=== PATIENT | female | born 1960 | race Caucasian/White ===

== ENCOUNTER 2020-04-23 16:19 | Emergency (ER) | payer OTHER, SELFPAY ==
[2020-04-23 16:28] VITALS: BP 199/144; PULSE 116; RESP 18; TEMP 37; O2SAT 99
--- NOTE | 2020-04-23 16:45 | ED.GENADULT ---
HPI - General Adult General Chief complaint: Unspecified Stated complaint: Nose bleed Time Seen by Provider: 04/23/20 16:24 Source: patient Mode of arrival: ambulatory Limitations: no limitations History of Present Illness HPI narrative: This patient is a 60 year old female who presents for evaluation of nose bleed. She states this morning she was picking at her nose and it started bleeding from the left nostril. It has intermittent bled today. She has been using AFrin today more than recommended. She denies postnasal drainage. She denies lightheadedness or dizziness currently. Related Data Allergies Allergy/AdvReac Type Severity Reaction Status Date / Time No Known Allergies Allergy Verified 04/23/20 19:32 Review of Systems Review of Systems: All systems reviewed & are unremarkable except as noted in HPI and below Constitutional: Constitutional: Denies chills and Denies fever(s) Cardiovascular: Cardiovascular: Denies chest pain and Denies radiating jaw, neck or arm pain Respiratory: Respiratory: Denies cough and Denies dyspnea [facility] Social History Social History (Updated 04/23/20 @ 17:01 by Geno Segundo MD) Additional occupation/education comments: nurse Gender identity (if verbalized by the patient): Female Exam Const: General: no acute distress and alert Orientation/consciousness: patient oriented x3 HENMT: Head: normocephalic and atraumatic General nose exam: Other nasal findings present (hole in nasal septum, bright red blood in left nare, more medial) Face and sinus: face symmetric Throat: posterior oropharynx normal, tonsils normal, uvula midline and peritonsillar mass Resp: Effort & Inspection: normal respiratory effort Cardio: Rate: regular rate Rhythm: regular rhythm Heart sounds: no murmurs Course Reevaluation(s) Reevaluation #1: Surgicel placed in left nostril. Bleeding controlled. PAtient reports she has white coat syndrome. She will get established with PCP Date: 04/23/20 Time: 18:39 Vital Signs Vital signs: Vital Signs Temperature 98.6 F 04/23/20 16:28 Pulse Rate 116 H 04/23/20 16:28 Respiratory Rate 18 04/23/20 16:28 Blood Pressure 199/144 H 04/23/20 16:28 Pulse Oximetry 99 04/23/20 16:28 Temperature 98.6 F 04/23/20 16:28 Pulse Rate 82 04/23/20 19:06 Respiratory Rate 20 04/23/20 19:06 Blood Pressure 160/92 H 04/23/20 19:06 Pulse Oximetry 99 04/23/20 19:06 Medical Decision Making Vital Signs Vital Signs: Vital Signs Temperature 98.6 F 04/23/20 16:28 Pulse Rate 116 H 04/23/20 16:28 Respiratory Rate 18 04/23/20 16:28 Blood Pressure 199/144 H 04/23/20 16:28 Pulse Oximetry 99 04/23/20 16:28 Temperature 98.6 F 04/23/20 16:28 Pulse Rate 82 04/23/20 19:06 Respiratory Rate 20 04/23/20 19:06 Blood Pressure 160/92 H 04/23/20 19:06 Pulse Oximetry 99 04/23/20 19:06 Discharge Plan Discharge Clinical Impression: Acute anterior epistaxis, Elevated blood pressure reading Patient Disposition: Home, Self-Care Condition: Stable Instructions: Antibiotic Form, Nosebleed (ED), Hypertension (ED) Additional Instructions: It is important that you get established with a primary care physician to check your blood pressure. Check your blood pressure daily at home. IF your blood pressure is over 160 systolic you can take a clonidine as usual. You can take the packing out later tonight or tomorrow morning. Prescriptions: New clonidine HCl 0.1 mg tablet 0.1 mg PO DAILY PRN (Reason: hypertensive emergency) Qty: 10 RF: 0 Follow-up/Referrals: Rodrigue Rodriguez MD [Physician] - Soy Bryson MD [Physician] - PHYSICIAN,PHARMACEUTICAL SPECIALTY REPRESENTATIVE [Primary Care Provider] - Discharge Date/Time: 04/23/20 19:07
[2020-04-23] MEDS: cloNIDine HCL 0.1 MG TABLET PO (16:49)
[2020-04-23 17:45] VITALS: BP 160/129
[2020-04-23 19:06] VITALS: BP 160/92; PULSE 82; RESP 20; O2SAT 99
== END 2020-04-23 19:07 | disposition home or self-care (01) ==
PROVIDERS: Emergency Provider General Practice
DX: R04.0 Epistaxis (principal); R03.0 Elevated blood-pressure reading, without diagnosis of hypertension
CPT/HCPCS: 12011; 99283; A9270

== ENCOUNTER 2020-04-23 19:31 | Emergency (ER) | payer OTHER, SELFPAY ==
[2020-04-23 19:46] VITALS: BP 158/117; PULSE 89; RESP 18; TEMP 37; O2SAT 95
--- NOTE | 2020-04-23 19:50 | PC.NURSE ---
Pt states she has a hole in he septum from years ago and believes she irritated it by placing a tampon in her nose earlier.
--- NOTE | 2020-04-23 20:25 | ED.EPISTAXIS ---
HPI - Epistaxis General Chief complaint: Epistaxis Stated complaint: nosebleed Time Seen by Provider: 04/23/20 19:32 Source: patient Mode of arrival: ambulatory Limitations: no limitations History of Present Illness HPI Narrative: This patient is a 60 year old female who was just discharged from the ER for epistaxis. She states she prior to leaving she was having some mild oozing from her nose and she felt like she was developing a clot. The bleeding started in her left nostril. She also reports she is bleeding from right nostril now . She wanted to get checked again. She has some pressure to left nostril . She denies lightheadedness or dizziness. Related Data Allergies Allergy/AdvReac Type Severity Reaction Status Date / Time No Known Allergies Allergy Verified 04/23/20 19:32 Review of Systems Review of Systems: All systems reviewed & are unremarkable except as noted in HPI and below PMFSH Past Medical History Medical History Epistaxis Surgical History Surgical History H/O sinus surgery Social History Social History (Updated 04/23/20 @ 17:01 by Geno Segundo MD) Additional occupation/education comments: nurse Gender identity (if verbalized by the patient): Female Exam Const: General: no acute distress and alert Orientation/consciousness: patient oriented x3 HENMT: Head: normocephalic and atraumatic General nose exam: Abnormal nasal septum present perforated, Epistaxis present, Foreign body present in naris on the left (surgicel in place ) and Other nasal findings present (bright red blood oozing in bilateral nares , oozing throught perforated ) Face and sinus: face symmetric Eyes: EOM: EOMs intact bilaterally Resp: Effort & Inspection: normal respiratory effort Skin: General skin exam: normal color Rashes: no rashes Neuro: General: patient oriented x3 and moves all extremities Course Reevaluation(s) Reevaluation #1: Patient states she is fixed. She has no bleeding and she is ready for discharge. Date: 04/23/20 Time: 20:26 Vital Signs Vital signs: Vital Signs Temperature 98.6 F 04/23/20 19:46 Pulse Rate 89 04/23/20 19:46 Respiratory Rate 18 04/23/20 19:46 Blood Pressure 158/117 H 04/23/20 19:46 Pulse Oximetry 95 04/23/20 19:46 Temperature 98.6 F 04/23/20 19:46 Pulse Rate 89 04/23/20 19:46 Respiratory Rate 18 04/23/20 19:46 Blood Pressure 158/117 H 04/23/20 19:46 Pulse Oximetry 95 04/23/20 19:46 Procedures Epistaxis Control left: Epistaxis Control Date: 04/23/20 Epistaxis Control Time: 20:00 Time Out Performed: No Direct Inspection: anterior source identified Clots Removed by: blowing nose Device Inserted: hemostatic balloon Patient Tolerated Procedure: well and no complications Discharge Plan Discharge Clinical Impression: Acute anterior epistaxis Patient Disposition: Home, Self-Care Condition: Stable Instructions: Antibiotic Form, Nosebleed (ED) Prescriptions: No Action clonidine HCl 0.1 mg tablet 0.1 mg PO DAILY PRN (Reason: hypertensive emergency) Qty: 10 RF: 0 Follow-up/Referrals: Rodrigue Rodriguez MD [Physician] - PHYSICIAN,PLODDING MACHINE OPERATOR [Primary Care Provider] -
--- NOTE | 2020-04-23 20:45 | PC.NURSE ---
Pt states shes back due to being a idiot and picking at my nose . MD placed rocket in left nostril.Pt only complains os slight discomfort due to the pressure.
[2020-04-23 20:49] VITALS: BP 125/102; PULSE 119; RESP 20; O2SAT 96
== END 2020-04-23 20:30 | disposition home or self-care (01) ==
PROVIDERS: Emergency Provider General Practice
DX: R04.0 Epistaxis (principal)
CPT/HCPCS: 12011; 30901; 99282; A9270

== ENCOUNTER 2025-06-09 04:19 | Emergency (ER) | payer OTHER, MEDICARE, SELFPAY ==
[2025-06-09 04:23] VITALS: BP 140/92; PULSE 79; RESP 16; TEMP 36.6; O2SAT 99
[2025-06-09 04:24] VITALS: BP 140/92; O2SAT 99
[2025-06-09 04:32] VITALS: BP 125/81; PULSE 79; RESP 16; TEMP 36.7; O2SAT 98
--- NOTE | 2025-06-09 04:32 | ED_ITS ---
HPI - Extremity Problem General Chief complaint: Extremity Problem,Nontraumatic Stated complaint: right arm pain Time Seen by Provider: 06/09/25 04:20 Source: patient Mode of arrival: ambulatory Limitations: no limitations History of Present Illness HPI Narrative: This is a 65-year-old female with history of spinal stenosis who presents to the ED for neck pain and right arm tingling. Patient states that she was driving to work this morning when she had onset of right inner arm tingling with some right neck pain consistent with her flare-ups of cervical stenosis. She is already being evaluated by spinal surgery for this and is in physical therapy. She has had MRIs done most recently a few weeks ago that confirmed this. Denies fevers, chills other pains. Related Data Allergies Allergy/AdvReac Type Severity Reaction Status Date / Time No Known Allergies Allergy Verified 12/17/21 10:52 Review of Systems Review of Systems: Gen.: Denies fevers or chills Eyes: Denies eye pain or visual change ENT: Denies congestion Respiratory: Denies shortness of breath or cough CV: Denies chest pain or palpitations GI: Denies abdominal pain nausea, emesis or diarrhea denies burning, urgency, frequency or hematuria Musculoskeletal: Denies back pain or muscle pain Neuro: As per HPI Skin: Denies rash Except as documented, all other systems reviewed and negative PMFSH Past Medical History Medical History (Updated 06/09/25 @ 04:35 by Homero Vivas MD) Epistaxis Surgical History Surgical History H/O sinus surgery Social History Social History Additional occupation/education comments: nurse Gender identity (if verbalized by the patient): Female Exam Narrative: APPEARANCE: No acute distress, nontoxic, resting in bed HEENT: Normocephalic, atraumatic, OMM Neck: Mild tenderness over the right paracervical muscles. Positive Spurling maneuver on the right RESPIRATORY: No respiratory distress CARDIOVASCULAR: Appears well perfused ABDOMINAL: Nondistended MUSCULOSKELETAl: Moves all extremities. No obvious deformities NEURO: Awake and alert. SKIN:: Warm, dry. No rashes lesions or abrasions PSYCHIATRIC: Normal affect/mood, Course Vital Signs Vital signs: Vital Signs Temperature 97.8 F 06/09/25 04:23 Pulse Rate 79 06/09/25 04:23 Respiratory Rate 16 06/09/25 04:23 Blood Pressure 140/92 H 06/09/25 04:23 Pulse Oximetry 99 06/09/25 04:23 Oxygen Delivery Room Air 06/09/25 04:23 Temperature 97.8 F 06/09/25 04:23 Pulse Rate 79 06/09/25 04:23 Respiratory Rate 16 06/09/25 04:23 Blood Pressure 140/92 H 06/09/25 04:23 Pulse Oximetry 99 06/09/25 04:23 Oxygen Delivery Room Air 06/09/25 04:23 MDM - Extremity (Nontraumatic) MDM Narrative Medical decision making narrative: 65-year-old female Presenting for neck pain and right arm numbness. On initial evaluation patient was in no acute distress afebrile, hemodynamic stable. Notable exam findings: Positive Spurling maneuver on the right Exam consistent with her prior history of cervical stenosis and cervical radiculopathy. Advanced imaging is not indicated at this time. Patient was given Toradol and prednisone here in the ED. She was given a short course of prednisone. She has an appointment next week with a spinal surgeon which I encouraged her to go to. Patient is agreeable to this plan. Given strict return precautions. Differential Diagnosis Differential diagnosis: Likely other (Cervicalgia, cervical radiculopathy, muscle strain, muscle spasm, torticollis) Discharge Plan Discharge Clinical Impression: Cervical radiculopathy Patient Disposition: Home Condition: Stable Instructions: Antibiotic Form, Cervical Radiculopathy (ED) Additional Instructions: Your symptoms were consistent with your history of cervical stenosis and cervical radiculopathy. You were given a prescription for prednisone, take this as prescribed. Follow up with the spinal surgeon next week as scheduled. Return to the ED for any new or worsening symptoms. Patient Language: Belarusian Prescriptions: New prednisone 20 mg tablet 20 mg PO DAILY 5 Days Qty: 5 0RF Rx Instructions: begin taking 06/10 No Action clonidine HCl 0.1 mg tablet 0.1 mg PO DAILY PRN (Reason: hypertensive emergency) Qty: 10 0RF Follow-up/Referrals: PHYSICIAN,SAP SENIOR DEVELOPER [Primary Care Provider, Internal Medicine]
[2025-06-09] MEDS: KETOROLAC 30 MG/ML VIAL (*BKC) IM (04:38)
== END 2025-06-09 05:35 | disposition home or self-care (01) ==
PROVIDERS: Emergency Provider Student in an Organized Health Care Education/Training Program; PCP Internal Medicine
DX: M54.12 Radiculopathy, cervical region (principal)
CPT/HCPCS: 96372; 99283; J1885; J7512